=== PATIENT | female | born 1930 | race Caucasian/White ===

== ENCOUNTER → 2017-04-24 | Outpatient (CLI) | payer MEDICARE ==
[~2017-04-24] MED LIST: ASPI81CH; HYDCHL12.5; LEVOXYL; LISINOPRIL; METF500; NEXIUM
== END ==
LOC: LAB 12:20
DX: R30.0 Dysuria (principal)
CPT/HCPCS: 87077; 87086; 87186

== ENCOUNTER 2020-04-19 15:16 | Inpatient (IN) | payer OTHER ==
[~2020-04-19] VITALS: Ht 149.9 cm; Wt 74.8 kg
[~2020-04-19 15:16] MED LIST changes: -ASPI81CH; +Aspirin EC81 MG PO
[2020-04-19 16:22] LABS: BASOPHILS ABSOLUTE AUTO 0.04 K/mm3 (0.00-0.23); BASOPHILS PERCENT AUTO 0 % (0-2); EOSINOPHILS ABSOLUTE AUTO 0.09 K/mm3 (0.00-0.68); EOSINOPHILS PERCENT AUTO 1 % (0-6); Hematocrit 38.4 % (33.0-51.0); Hemoglobin 12.7 g/dL (11.5-16.0); IMMATURE GRAN ABSOLUTE AUTO 0.09 K/mm3 (0.00-0.10); IMMATURE GRAN PERCENT AUTO 1 % (0-1); LYMPHOCYTES ABSOLUTE AUTO 1.48 K/mm3 (0.84-5.20); LYMPHOCYTES PERCENT AUTO 11 % (21-46); MONOCYTES ABSOLUTE AUTO 0.76 K/mm3 (0.16-1.47); MONOCYTES PERCENT AUTO 5 % (4-13); Mean Corpuscular HGB 29.7 pg (26.0-34.0); Mean Corpuscular HGB Conc 33.1 g/dL (31.5-36.5); Mean Corpuscular Volume 90 fL (80-100); Mean Platelet Volume 9.4 fL (9.1-12.4); NEUTROPHILS ABSOLUTE AUTO 11.53 K/mm3 (1.96-9.15); NEUTROPHILS PERCENT AUTO 83 % (41-73); Platelet Count 284 K/mm3 (150-400); RDW Coefficient Variation 13.6 % (11.7-14.2); Red Blood Cell Count 4.27 M/mm3 (3.80-5.20); White Blood Cell Count 13.99 K/mm3 (4.00-11.30)
[2020-04-19 16:37] LABS: Albumin, Blood 3.4 g/dL (3.4-5.0); Albumin/Globulin Ratio 0.8 (0.8-1.8); Bilirubin, Total 1.9 mg/dL (0.1-1.0); Bun/Creatinine Ratio 34.1 (12.0-20.0); Calcium, Blood 9.2 mg/dL (8.5-10.1); Creatinine, Blood 1.35 mg/dL (0.40-1.00); Globulin, Blood 4.5 g/dL (2.2-4.0); Potassium, Blood 3.7 mmol/L (3.5-5.5); Total Protein, Blood 7.9 g/dL (6.4-8.2); Troponin I 0.103 ng/mL (0.000-0.040)
[2020-04-19] MEDS ORDERED: LEVOTHYROXINE112 MC2 PO (18:28)
[2020-04-19] MEDS ORDERED: SPIRONOLACTONE25 MG PO (18:28)
[2020-04-19] MEDS ORDERED: CONSTULOSE PO (18:28)
[2020-04-19] MEDS ORDERED: BUMETANIDE2 M1 PO (18:28)
[2020-04-19] MEDS ORDERED: ALLOPURINOL100 M1 PO (18:28)
[2020-04-19 19:22] LABS: Influenza A, PCR NEGATIVE (NEGATIVE); Influenza B, PCR NEGATIVE (NEGATIVE); Resp Syncytial Virus, PCR NEGATIVE (NEGATIVE); SARS-Cov-2 (COVID-19) PCR, MMC NEGATIVE (NEGATIVE)
[2020-04-19 20:11] LABS: Source, Urine Clean Catch
[2020-04-19 20:14] LABS: Bilirubin, Urine Neg (Neg); Blood, Urine Neg (Neg); Glucose Qualitative, Urine Neg (Neg); Ketones, Urine Neg (Neg); Leukocyte Esterase, Urine Neg (Neg); Nitrite, Urine Neg (Neg); Protein, Urine Neg (Neg); Urobilinogen, Urine NORM (Normal)
[2020-04-19 20:21] LABS: Appearance, Urine Clear (Clear); Color, Urine Yellow (P-Yellow)
[2020-04-20 00:52] LABS: Thyroid Stimulating Hormone 0.882 uIU/mL (0.360-4.800)
[2020-04-20 06:07] LABS: BASOPHILS ABSOLUTE AUTO 0.02 K/mm3 (0.00-0.23); BASOPHILS PERCENT AUTO 0 % (0-2); EOSINOPHILS PERCENT AUTO 0 % (0-6); Hematocrit 34.1 % (33.0-51.0); Hemoglobin 11.4 g/dL (11.5-16.0); IMMATURE GRAN ABSOLUTE AUTO 0.07 K/mm3 (0.00-0.10); IMMATURE GRAN PERCENT AUTO 0 % (0-1); LYMPHOCYTES ABSOLUTE AUTO 0.65 K/mm3 (0.84-5.20); LYMPHOCYTES PERCENT AUTO 4 % (21-46); MONOCYTES ABSOLUTE AUTO 0.79 K/mm3 (0.16-1.47); MONOCYTES PERCENT AUTO 5 % (4-13); Mean Corpuscular HGB 29.8 pg (26.0-34.0); Mean Corpuscular HGB Conc 33.4 g/dL (31.5-36.5); Mean Corpuscular Volume 89 fL (80-100); Mean Platelet Volume 9.1 fL (9.1-12.4); NEUTROPHILS ABSOLUTE AUTO 14.83 K/mm3 (1.96-9.15); NEUTROPHILS PERCENT AUTO 91 % (41-73); Platelet Count 222 K/mm3 (150-400); RDW Standard Deviation 45.3 fL (35.1-46.3); Red Blood Cell Count 3.82 M/mm3 (3.80-5.20); White Blood Cell Count 16.36 K/mm3 (4.00-11.30)
[2020-04-20 06:26] LABS: Albumin, Blood 2.7 g/dL (3.4-5.0); Albumin/Globulin Ratio 0.8 (0.8-1.8); Bilirubin, Total 4.1 mg/dL (0.1-1.0); Bun/Creatinine Ratio 27.8 (12.0-20.0); Calcium, Blood 8.5 mg/dL (8.5-10.1); Creatinine, Blood 1.44 mg/dL (0.40-1.00); Globulin, Blood 3.6 g/dL (2.2-4.0); Potassium, Blood 3.5 mmol/L (3.5-5.5); Total Protein, Blood 6.3 g/dL (6.4-8.2); Troponin I 0.091 ng/mL (0.000-0.040)
--- NOTE | 2020-04-20 16:03 | NUR ---
ASSUMED CARE FROM [facility] PT ARRIVED TO PCU AT APPROXIMATELY 1415 VIA STRETCHER. PT WAS VERY LETHARGIC BUT REPSONDED TO PAIN AND IS AROUSABLE. PT WAS ABLE TO USE THE BED VIDAL WHEN ARRIVING TO THE ROOM BUT SOON AFTER HAD AN INCONTINENCE EPISODE. PT'S HISTORY AND MEDICATIONS HAVE BEEN REVIEWED WITH HER DAUGHTER RADHA WHO IS ALSO HER POA. PT'S DAUGHTER STATES THAT THERE IS A POLST FORM BUT IT IS AT HOME. PT IS IN BED RESTING AT THIS TIME
--- NOTE | 2020-04-20 19:08 | NUR ---
[facility] TRANSFER TO [facility] PT TRANSFERRED TO [facility] TO HAVE GI SURGICAL CONSULT REGARDING THE CHOLEDUCTLITHIASIS. PT LEFT AT APPROXIMATELY 1840 VIA AMBULANCE. REPORT WAS GIVEN TO HUMERA HERNANDEZ AT [facility]. PT WAS SLIGHTLY HYPOTENSIVE WHEN LEAVING BUT VITALS WERE RECHECKED, LR WAS RUNNING AT 150ML/HR, PT HAD MULTIPLE LOW BP THROUGHOUT THE DAY AND MAP WAS 67. EMT AGREED TO TRANSFER THE PT AND SHE LEFT VIA STRETCHER AT THAT TIME. PT'S FAMILY WAS IN THE ROOM AT THE TIME OF TRANSFER IS THEREFORE AWARE FO THE TRASNFER. EMT HAS BEEN NOTIFIED OF DNR STATUS AND PT'S SITUATION AND HISTORY.
== END 2020-04-20 18:53 | disposition short-term general hospital (02) | DRG 871 ==
LOC: ER 15:16 → ERHOLD 04-20 00:44 → PCU 04-20 14:47
PROVIDERS: Emergency Medicine; Physician Assistant; ADMIT Internal Medicine
DX: A41.9 Sepsis, unspecified organism (principal); I21.A1 Myocardial infarction type 2; E11.22 Type 2 diabetes mellitus with diabetic chronic kidney disease; E03.9 Hypothyroidism, unspecified; I12.9 Hypertensive chronic kidney disease with stage 1 through stage 4 chronic kidney disease, or unspecified chronic kidney disease; Z66 Do not resuscitate; R74.01 Elevation of levels of liver transaminase levels; E78.5 Hyperlipidemia, unspecified; K57.30 Diverticulosis of large intestine without perforation or abscess without bleeding; R65.20 Severe sepsis without septic shock; K80.50 Calculus of bile duct without cholangitis or cholecystitis without obstruction; Z79.82 Long term (current) use of aspirin
CPT/HCPCS: 0241U; 36415; 71046; 74177; 74181; 80053; 81003; 82947; 83036; 83605; 83690; 83735; 84443; 84484; 85025; 93005; 93010; 96361; 96365-59; 96366; 96367; 96375; 96376; 99285-25; A9270; J0696; J2270; J2405; J3010; J7030; Q9967